=== PATIENT | female | born 1965 | race African-American/Black ===

== ENCOUNTER 2019-05-23 14:08 | Emergency (ER) | payer MEDICARE, MEDICAID, SELFPAY ==
[2019-05-23 14:24] VITALS: BP 142/58; PULSE 78; RESP 16; TEMP 36.9; O2SAT 98
--- NOTE | 2019-05-23 14:34 | ED_ITS ---
I attest that this documentation has been prepared under the direction and in the presence of Ruben Jasmine MD. Blane Smith Scribe 05/23/19;14:34 HPI - Skin/Abscess/Foreign Bdy General Chief complaint: Skin/Abscess/Foreign Body Stated complaint: ?? scabies Time Seen by Provider: 05/23/19 14:24 Source: patient Mode of arrival: ambulatory Limitations: no limitations History of Present Illness HPI narrative: The pt is a 53 y/o female who presents to the ED c/o possible scabies onset 2 weeks ago. Pt states that her neighbor's house has scabies, and she has been over there. She also notes that she has been at a hotel too. The pt reports itching and rash, but denies any fever and chills. She notes that she has not received any relief in general from any treatments or anything she has done. Pt reports a PMHx of HTN, DM, and a PSHx of section. She notes that she smokes cigarettes. complaint: other (Possible scabies) Onset (ago): week(s) (2) Relieving factors: none Context: other (Neighbor who she has visited has scabies; also recently stayed at a hotel) Associated symptoms: itching and other (Rash) Related Data Allergies Allergy/AdvReac Type Severity Reaction Status Date / Time No Known Allergies Allergy Verified 05/23/19 14:26 Review of Systems Review of Systems: All systems reviewed & are unremarkable except as noted in HPI and below Constitutional: Constitutional: Denies chills and Denies fever(s) Integumentary/Breasts: Skin/Breast: Reports pruritus and Reports rash PMFSH Past Medical History Medical History (Updated 05/23/19 @ 15:04 by Ruben Jasmine MD) Diabetes mellitus HTN (hypertension) Surgical History Surgical History (Updated 05/23/19 @ 14:41 by Blane Smith) H/O section Social History Social History (Updated 05/23/19 @ 14:41 by Blane Smith) Smoking status: Smoker, status unknown Exam Narrative: Exam Narrative: GENERAL: Well-appearing, well-nourished, and in no acute distress. HEAD: Normocephalic, atraumatic. EXTREMITIES: Normal range of motion. No edema. SKIN: Warm, dry, excoriations to hands and wrists, no burrowing, scabbed pick gaffney. NEURO: Alert and oriented x3. PSYCH: Normal mood and affect. Course Course Emergency Course: Will d/c with permethrin. Vital Signs Vital signs: Vital Signs Temperature 98.4 F 05/23/19 14:24 Pulse Rate 78 05/23/19 14:24 Respiratory Rate 16 05/23/19 14:24 Blood Pressure 142/58 H 05/23/19 14:24 Pulse Oximetry 98 05/23/19 14:24 Temperature 98.4 F 05/23/19 14:24 Pulse Rate 78 05/23/19 14:24 Respiratory Rate 16 05/23/19 14:24 Blood Pressure 142/58 H 05/23/19 14:24 Pulse Oximetry 98 05/23/19 14:24 Discharge Plan Discharge Clinical Impression: Exposure to scabies Patient Disposition: Home, Self-Care Condition: Stable Instructions: Scabies (ED) Additional Instructions: Return to the ER if you have fever over 100.4 ?F, you cannot keep down food or water, you have chest pain or shortness of breath, you have additional concerns. Prescriptions: New permethrin 5 % cream 1 applic TOPICAL ONCE Qty: 60 RF: 0 Follow-up/Referrals: UNKNOWN,DOC
[2019-05-23 15:18] VITALS: BP 140/90; PULSE 70; RESP 16; O2SAT 98
== END 2019-05-23 15:18 | disposition home or self-care (01) ==
PROVIDERS: Emergency Provider Emergency Medicine
DX: Z20.7 Contact with and (suspected) exposure to pediculosis, acariasis and other infestations (principal); E11.9 Type 2 diabetes mellitus without complications; I10 Essential (primary) hypertension
CPT/HCPCS: 99283

== ENCOUNTER 2019-05-27 11:36 | Emergency (ER) | payer MEDICARE, MEDICAID, SELFPAY ==
[2019-05-27 11:40] VITALS: BP 136/84; PULSE 84; RESP 18; TEMP 36.6; O2SAT 98
--- NOTE | 2019-05-27 13:20 | ED.GENADULT ---
HPI - General Adult General Chief complaint: Skin/Abscess/Foreign Body Stated complaint: itching Time Seen by Provider: 05/27/19 12:35 Source: patient Mode of arrival: ambulatory Limitations: no limitations History of Present Illness HPI narrative: Patient is a 53-year-old female who presents to emergency department for evaluation of rash to the hands that began after visiting her friend who reportedly had scabies patient has tried the cream with no improvement patient notes itching of the hands and wrists patient denies other complaints and presents in no distress Related Data Allergies Allergy/AdvReac Type Severity Reaction Status Date / Time No Known Allergies Allergy Verified 05/27/19 12:28 Review of Systems Review of Systems: All systems reviewed & are unremarkable except as noted in HPI and below PMFSH Past Medical History Medical History Diabetes mellitus HTN (hypertension) Surgical History Surgical History H/O section Social History Social History Smoking status: Smoker, status unknown Exam Narrative: Exam Narrative: GENERAL: Well-appearing, well-nourished, and in no acute distress. HEAD: Normocephalic, atraumatic. EYES: PERRLA and EOMI. ENT: Nares clear, no rhinorrhea or epistaxis. Mucous membranes moist. EXTREMITIES: Normal range of motion. No edema. SKIN: Warm, dry, patient with fine rash to the hands and wrists no erythema no lymphangitic streaking NEURO: No focal deficits. Alert and oriented x3. Cranial nerves II through XII grossly intact PSYCH: Normal mood and affect. Course Course Emergency Course: Patient in the room in no distress Medical Decision Making MDM Narrative Medical decision making narrative: Patient in the room in no distress advised to follow with primary care for further evaluation and discussion of dermatology referral Discharge Plan Discharge Clinical Impression: Rash and nonspecific skin eruption Patient Disposition: Home, Self-Care Condition: Stable Instructions: Antibiotic Form, Scabies (ED), Acute Rash (ED) Additional Instructions: Follow up with your primary care provider within 1-2 days. Go to ER for shortness of breath, difficulty breathing, chest pain, fever/chills, weakness, nauseau/vomitting, etc. or any other concerns. Follow patient education sheets Take any prescribed medications as directed. Stay well-hydrated If you do not have a drug allergy to tylenol or motrin and can tolerate it then take tylenol or motrin as needed for discomfort/pain. Prescriptions: New hydroxyzine HCl 25 mg tablet 25 mg PO TID PRN (Reason: itching) Qty: 7 RF: 0 permethrin 5 % cream 1 applic TOPICAL ONCE Qty: 60 RF: 0 No Action permethrin 5 % cream 1 applic TOPICAL ONCE Qty: 60 RF: 0 Follow-up/Referrals: UNKNOWN,DOCTOR [Primary Care Provider] -
== END 2019-05-27 13:59 | disposition home or self-care (01) ==
PROVIDERS: Emergency Provider Emergency Medicine
DX: R21 Rash and other nonspecific skin eruption (principal); E11.9 Type 2 diabetes mellitus without complications; I10 Essential (primary) hypertension
CPT/HCPCS: 99283

== ENCOUNTER 2019-06-18 21:17 | Emergency (ER) | payer MEDICARE, MEDICAID, SELFPAY ==
[2019-06-18 21:25] VITALS: BP 177/100; PULSE 65; RESP 19; TEMP 36.6; O2SAT 97
--- NOTE | 2019-06-18 22:05 | ED.GENADULT ---
HPI - General Adult General Chief complaint: Skin/Abscess/Foreign Body Stated complaint: itching-scalp and groin Time Seen by Provider: 06/18/19 21:25 Source: patient and family Mode of arrival: ambulatory Limitations: no limitations History of Present Illness HPI narrative: Patient is a 53-year-old female who presents to emergency department for evaluation of rash that is over the body noting that she has had this for 2 months has been treated with permethrin twice with no improvement patient notes itching with some wounds from excoriations from itching patient denies any other illness or complaints was supposed to see a specialist but did not make the appointment and on arrival is in the room in no distress Related Data Home Medications Medication Instructions Recorded Confirmed alprazolam 06/18/19 atenolol 06/18/19 glipizide mg 06/18/19 losartan 06/18/19 nifedipine PO 06/18/19 quetiapine 06/18/19 simvastatin mg 06/18/19 sitagliptin [Januvia] mg 06/18/19 Allergies Allergy/AdvReac Type Severity Reaction Status Date / Time No Known Allergies Allergy Verified 06/18/19 21:30 Review of Systems Review of Systems: All systems reviewed & are unremarkable except as noted in HPI and below PMFSH Social History Social History Smoking status: Smoker, status unknown Exam Narrative: Exam Narrative: GENERAL: Well-appearing, obese, and in no acute distress. HEAD: Normocephalic, atraumatic. EYES: PERRLA and EOMI. ENT: Nares clear, no rhinorrhea or epistaxis. Mucous membranes moist. Oropharynx without tonsillar hypertrophy exudate or other lesions. CHEST: Clear to auscultation. No respiratory distress. No wheezes rales or rhonchi HEART: Regular rate and rhythm. No murmur heard. EXTREMITIES: Normal range of motion. No edema. SKIN: Warm, dry, no rash. Patient with excoriation secondary to itching no other rashes noted NEURO: No focal deficits. Alert and oriented x3. PSYCH: Normal mood and affect. Course Course Emergency Course: Patient in the room in no distress aware of case findings treatment plan and diagnosis Vital Signs Vital signs: Vital Signs Temperature 97.8 F 06/18/19 21:25 Pulse Rate 65 06/18/19 21:25 Respiratory Rate 19 06/18/19 21:25 Blood Pressure 177/100 H 06/18/19 21:25 Pulse Oximetry 97 06/18/19 21:25 Temperature 97.8 F 06/18/19 21:25 Pulse Rate 65 06/18/19 21:25 Respiratory Rate 19 06/18/19 21:25 Blood Pressure 177/100 H 06/18/19 21:25 Pulse Oximetry 97 06/18/19 21:25 Medical Decision Making MDM Narrative Medical decision making narrative: Patient in the room in no distress aware of case findings treatment plan and diagnosis agreeing to follow with primary care for further evaluation and discussion of dermatology referral Vital Signs Vital Signs: Vital Signs Temperature 97.8 F 06/18/19 21:25 Pulse Rate 65 06/18/19 21:25 Respiratory Rate 19 06/18/19 21:25 Blood Pressure 177/100 H 06/18/19 21:25 Pulse Oximetry 97 06/18/19 21:25 Temperature 97.8 F 06/18/19 21:25 Pulse Rate 65 06/18/19 21:25 Respiratory Rate 19 06/18/19 21:25 Blood Pressure 177/100 H 06/18/19 21:25 Pulse Oximetry 97 06/18/19 21:25 Discharge Plan Discharge Clinical Impression: Rash and nonspecific skin eruption Patient Disposition: Home, Self-Care Condition: Stable Instructions: Antibiotic Form, Acute Rash (ED) Additional Instructions: Follow up with your primary care doctor in 5-7 days for re-evaluation. Go to ER for worsening pain, vision changes, nausea/vomiting, fever/chills, weakness, chest pain, shortness of breath, numbness/tingling, slurred speech, difficulty walking, change in mental status etc. or any other concerns. Discussed dermatology referral with primary care Take any prescribed medications as directed. Prescriptions: New mupirocin 2 % ointme
== END 2019-06-18 22:29 | disposition home or self-care (01) ==
PROVIDERS: Emergency Provider Emergency Medicine
DX: R21 Rash and other nonspecific skin eruption (principal)
CPT/HCPCS: 99283

== ENCOUNTER 2019-06-28 05:44 | Emergency (ER) | payer MEDICARE, MEDICAID, SELFPAY ==
[2019-06-28 05:49] VITALS: BP 152/108; PULSE 81; RESP 28; TEMP 36.4; O2SAT 98
--- NOTE | 2019-06-28 05:54 | ED.GENADULT ---
HPI - General Adult General Chief complaint: Unspecified Stated complaint: PARASITES? Time Seen by Provider: 06/28/19 05:54 Source: patient Mode of arrival: ambulatory Limitations: no limitations History of Present Illness HPI narrative: Patient is a 53-year-old female with a history of previous stroke who presents for evaluation of possible parasites. Patient states that she has felt tingling, and thinks she has seen worms or movement on her fingers. She also has been having some vaginal irritation, states she has been using an ointment without much relief. Patient denies fever, chills, abdominal pain, shortness of breath, dysuria or hematuria. No urinary frequency. Patient states her glucose levels have been appropriate. Patient states she has been treated with permethrin without much help. She has not noticed any parasites or worms present in her stool. No wounds on her feet, no recent travel. Pt denies SI or HI. She denies history of psychiatric disorder. Related Data Home Medications Medication Instructions Recorded Confirmed alprazolam 06/18/19 atenolol 06/18/19 glipizide mg 06/18/19 losartan 06/18/19 nifedipine PO 06/18/19 quetiapine 06/18/19 simvastatin mg 06/18/19 sitagliptin [Januvia] mg 06/18/19 Allergies Allergy/AdvReac Type Severity Reaction Status Date / Time No Known Allergies Allergy Verified 06/18/19 21:30 Review of Systems Review of Systems: Narrative: CONSTITUTIONAL: Denies fever, chills, or sweats. ENT: Denies rhinorrhea, congestion, sore throat, or otalgia. CARDIOVASCULAR: Denies chest pain, palpitations, or edema. RESPIRATORY: Denies cough or dyspnea. GASTROINTESTINAL: Denies abdominal pain, nausea, vomiting, or diarrhea. GENITOURINARY: Denies dysuria or hematuria. SKIN: Patient reports itching on her fingertips MUSCULOSKELETAL: Denies back pain, joint pain, or myalgia. NEUROLOGIC: Denies headache, numbness, or weakness. [facility] Past Medical History Medical History (Updated 06/28/19 @ 06:07 by Susannah Beaver MD) CVA (cerebral vascular accident) Diabetes Diabetes mellitus HTN (hypertension) Surgical History Surgical History (Updated 06/28/19 @ 05:57 by Susannah Beaver MD) H/O section Previous section Social History Social History Smoking status: Smoker, status unknown Exam Narrative: Exam Narrative: GENERAL: Awake, alert, conversant, anxious appearing HEAD: Normocephalic, atraumatic. EYES: PERRLA and EOMI. ENT: Nares clear, no rhinorrhea or epistaxis. Mucous membranes moist. NECK: Supple. CHEST: No respiratory distress, breathing even and non labored HEART: Regular rate, sinus rhythm ABDOMEN:Non distended, non tender : Scant vaginal discharge, no abscess, no vesicles, no lymphadenopathy EXTREMITIES: Normal range of motion. No edema. SKIN: Warm, dry, no rash. Scattered abrasions to bilateral upper extremities. No urticaria. No excoriation. No erythema or ulceratoins. NEURO:No focal deficits. Alert and oriented x3 Course Course Emergency Course: Patient presented for what she believes is a parasite exposure, but after questioning, patient has no reported worms present in her stool. I do not see any evidence of scabies on the physical exam, she has no vaginal irritation but does have some discharge present. I do feel there is a psychiatric component to this, however patient is oriented to person, place, and time, and does have insight into her symptoms. She is not suicidal or homicidal. Shared decision-making occurred, patient would just like to be treated empirically for sexually transmitted infections. She is denying any other urinary symptoms. I do not feel she has an exam consistent with allergic reaction. We will go ahead and prescribe some symptomatic treatment for the itching that she is experiencing. Otherwise, patient is not having any signs of severe systemic illness.
[2019-06-28] MEDS: cefTRIAXone 250 MG VIAL IM (06:10)
[2019-06-28] MEDS: AZITHROMYCIN 250 MG TABLET 1000 MG PO (06:10)
[2019-06-28] MEDS: metroNIDAZOLE 250 MG TABLET 2000 MG PO (06:11)
[2019-06-28 06:16] VITALS: BP 133/88; PULSE 88; RESP 17; O2SAT 97
== END 2019-06-28 06:18 | disposition home or self-care (01) ==
PROVIDERS: Emergency Provider Emergency Medicine
DX: N89.8 Other specified noninflammatory disorders of vagina (principal); Z71.1 Person with feared health complaint in whom no diagnosis is made; Z86.73 Personal history of transient ischemic attack (TIA), and cerebral infarction without residual deficits; I10 Essential (primary) hypertension; E11.9 Type 2 diabetes mellitus without complications
CPT/HCPCS: 96372; 99283; A9270; J0696

== ENCOUNTER 2019-07-02 00:53 | Emergency (ER) | payer MEDICARE, MEDICAID, SELFPAY ==
[2019-07-02 00:58] VITALS: BP 179/106; PULSE 76; RESP 18; TEMP 36.7; O2SAT 97
--- NOTE | 2019-07-02 01:18 | ED.GENADULT ---
HPI - General Adult General Chief complaint: Skin/Abscess/Foreign Body Stated complaint: itching Time Seen by Provider: 07/02/19 01:07 History of Present Illness HPI narrative: Patient is a 53-year-old female who presents ER with anal itching. Ongoing for the last couple months. Reports that she is found nothing that improves her symptoms. She sees flakes coming from her anus and around her vagina when she wipes. When she itches with her fingers she believes she sees worms coming out of her fingers. She reports diarrhea on occasion. No foreign travel. No fever/chills/nausea/vomiting. Seen in the ER previously and treated for possible sexually transmitted infection. Denies psychiatric history. Related Data Home Medications Medication Instructions Recorded Confirmed alprazolam 06/18/19 atenolol 06/18/19 glipizide mg 06/18/19 losartan 06/18/19 nifedipine PO 06/18/19 quetiapine 06/18/19 simvastatin mg 06/18/19 sitagliptin [Januvia] mg 06/18/19 alprazolam 07/02/19 Allergies Allergy/AdvReac Type Severity Reaction Status Date / Time No Known Allergies Allergy Verified 07/02/19 01:01 Review of Systems Review of Systems: All systems reviewed & are unremarkable except as noted in HPI and below Gastrointestinal: Gastrointestinal: Reports diarrhea Comments: Anal itching PMFSH Past Medical History Medical History (Updated 07/02/19 @ 02:01 by Ruben Jasmine MD) CVA (cerebral vascular accident) Diabetes Diabetes mellitus HTN (hypertension) Surgical History Surgical History (Updated 06/28/19 @ 05:57 by Susannah Beaver MD) H/O section Previous section Social History Social History Smoking status: Smoker, status unknown Gender identity (if verbalized by the patient): Female Exam Narrative: Exam Narrative: GENERAL: Well-appearing, obese, and in no acute distress. HEAD: Normocephalic, atraumatic. ENT: Mucous membranes moist. Rectal: External hemorrhoids that are nonthrombosed or bleeding, dry skin in gluteal fold. A couple small areas of skin breakdown from itchin. No abscess/fissures/fistulas. No worms seen. EXTREMITIES: Normal range of motion. No edema. NEURO: Alert and oriented x3. Course Course Emergency Course: Will send stool studies. Educated on ways to decrease itching. Recommend f/u with PCP. Vital Signs Vital signs: Vital Signs Temperature 98.0 F 07/02/19 00:58 Pulse Rate 76 07/02/19 00:58 Respiratory Rate 18 07/02/19 00:58 Blood Pressure 179/106 H 07/02/19 00:58 Pulse Oximetry 97 07/02/19 00:58 Temperature 98.0 F 07/02/19 00:58 Pulse Rate 76 07/02/19 00:58 Respiratory Rate 18 07/02/19 00:58 Blood Pressure 179/106 H 07/02/19 00:58 Pulse Oximetry 97 07/02/19 00:58 Medical Decision Making Vital Signs Vital Signs: Vital Signs Temperature 98.0 F 07/02/19 00:58 Pulse Rate 76 07/02/19 00:58 Respiratory Rate 18 07/02/19 00:58 Blood Pressure 179/106 H 07/02/19 00:58 Pulse Oximetry 97 07/02/19 00:58 Temperature 98.0 F 07/02/19 00:58 Pulse Rate 76 07/02/19 00:58 Respiratory Rate 18 07/02/19 00:58 Blood Pressure 179/106 H 07/02/19 00:58 Pulse Oximetry 97 07/02/19 00:58 Discharge Plan Discharge Clinical Impression: Pruritus ani Patient Disposition: Home, Self-Care Condition: Stable Instructions: Anal Itching (ED) Additional Instructions: Return the ER if you have worsening pain, you cannot keep down food or water, you have chest pain or shortness of breath, you have additional concerns. Try not to use any perfumes or soaps on your illness. Try to wash it just with water. May use witch ara to try to decrease the size of your external hemorrhoids. And [id number] pinworm medication would help with any sort of parasitic infection which I think is unlikely. Stool studies have been sent and you should fo
--- NOTE | 2019-07-02 02:16 | PC.NURSE ---
Pt stool specimen walked down to lab by ROGER
[2019-07-02 02:54] VITALS: BP 148/78; PULSE 87; RESP 13; O2SAT 97
== END 2019-07-02 02:52 | disposition home or self-care (01) ==
PROVIDERS: Emergency Provider Emergency Medicine
DX: L29.0 Pruritus ani (principal); Z86.73 Personal history of transient ischemic attack (TIA), and cerebral infarction without residual deficits; E11.9 Type 2 diabetes mellitus without complications; I10 Essential (primary) hypertension; Z79.4 Long term (current) use of insulin
CPT/HCPCS: 87015; 87177; 87209; 87269; 87272; 99283

== ENCOUNTER 2019-07-03 06:28 | Emergency (ER) | payer MEDICARE, MEDICAID, SELFPAY ==
--- NOTE | ~2019-07-03 | CT_ITS ---
EXAMINATION: CT abdomen pelvis w con DATE: 07/03/2019 07:54 INDICATION: Upper abdominal pain. Nausea and vomiting. TECHNIQUE: Computed tomography (CT) of the abdomen and pelvis was performed with 100 mL Omnipaque 350 intravenous contrast. Automated exposure control and iterative reconstruction technique were employe d. The dose-length product was 1381.93 mGy-cm. COMPARISON: None. FINDINGS: The visualized portions of the lung bases demonstrate mild atelectasis. No pleural effusion . Cardiomegaly is noted. No pericardial effusion. The liver, gallbladder, spleen, pancreas, adrenal g lands, and left kidney are normal. There are cysts in right kidney measuring up to 9 mm. There are no dilated loops of bowel. The appendix is normal. There are no pathologically enlarged lymph nodes. Th ere is no free intraperitoneal fluid. There is a right inguinal hernia containing fat. There is a lef t infraumbilical ventral hernia containing fat. There is mild thoracolumbar spondylosis. IMPRESSION: 1. Left infraumbilical ventral hernia and right inguinal hernia containing fat. Reviewed, dictated and finalized at location A.
[2019-07-03 06:44] VITALS: BP 143/90; PULSE 79; RESP 19; TEMP 36.2; O2SAT 100
--- NOTE | 2019-07-03 06:46 | ED.NAVMDI ---
HPI - Nausea/Vomiting/Diarrhea General Chief complaint: Nausea/Vomiting/Diarrhea Stated complaint: n/v Time Seen by Provider: 07/03/19 06:31 Source: patient and family Mode of arrival: ambulatory Limitations: no limitations History of Present Illness HPI Narrative: Patient is a 53-year-old female who presents for evaluation of abdominal pain, nausea and vomiting. Patient reports she has been vomiting over the past 12 hours, unable to tolerate any oral intake. Patient also reports abdominal pain throughout her abdomen, denies lower abdominal pain or back pain. Patient continues to endorse the feeling that worms are inside of her stomach and in her vagina. With chart review, patient has been seen 6 times over the past 3 months in our ER. She was seen June 27 for similar report, negative pelvic exam, treated for STI. Patient was then seen on July 01 for again similar report, diagnosed with pruritus ani, treated with antiparasitic medication and discharged. Patient states that she has been referred to a packager and strapper but that they are not accepting new patients due to the current pandemic status. Patient denies fever, chills, rhinorrhea, cough or shortness of breath. Patient denies any current vaginal bleeding, denies new vaginal discharge. Reports that symptoms continue despite multiple treatments offered from providers at this facility. Related Data Home Medications Medication Instructions Recorded Confirmed alprazolam 06/18/19 atenolol 06/18/19 glipizide mg 06/18/19 losartan 06/18/19 nifedipine PO 06/18/19 quetiapine 06/18/19 simvastatin mg 06/18/19 sitagliptin [Januvia] mg 06/18/19 alprazolam 07/02/19 Allergies Allergy/AdvReac Type Severity Reaction Status Date / Time No Known Allergies Allergy Verified 07/02/19 01:01 Review of Systems Review of Systems: Narrative: CONSTITUTIONAL: Denies fever, chills, or sweats. ENT: Denies rhinorrhea, congestion, sore throat, or otalgia. CARDIOVASCULAR: Denies chest pain, palpitations, or edema. RESPIRATORY: Denies cough or dyspnea. GASTROINTESTINAL: Reports abdominal pain, nausea, vomiting and diarrhea GENITOURINARY: Denies dysuria or hematuria. SKIN: Reports feeling worms crawling on her hands MUSCULOSKELETAL: Denies back pain, joint pain, or myalgia. NEUROLOGIC: Denies headache, numbness, or weakness. PSYCHIATRIC: Denies history of mental illness diagnosis [facility] Past Medical History Medical History CVA (cerebral vascular accident) Diabetes Diabetes mellitus HTN (hypertension) Surgical History Surgical History H/O section Previous section Social History Social History (Updated 07/03/19 @ 06:57 by Susannah Beaver MD) Smoking status: Current every day smoker Tobacco type: cigarettes Gender identity (if verbalized by the patient): Female Exam Narrative: Exam Narrative: GENERAL: Awake, alert, conversant HEAD: Normocephalic, atraumatic. EYES: PERRLA and EOMI. ENT: Nares clear, no rhinorrhea or epistaxis. Mucous membranes moist. NECK: Supple. CHEST: No respiratory distress, breathing even and non labored HEART: Regular rate, sinus rhythm ABDOMEN: Obese abdomen, soft, non distended, mild tenderness throughout, no guarding, nonrigid EXTREMITIES: Normal range of motion. No edema. SKIN: Warm, dry, no rash. NEURO:No focal deficits. Alert and oriented x3 Course Course Emergency Course: Patient presented for evaluation of nausea, vomiting and diarrhea. On exam, the patient is very well-appearing. No acute episodes of emesis, no current nausea in the ER or any distress. Patient's abdomen is soft without significant pain or signs of surgical abdomen on serial exams. Lab and imaging evaluations are reviewed and patient is felt to be a reasonable candidate for outpatient management. Patient has had numerous visits this week, at
[2019-07-03] MEDS: SODIUM CHLORIDE 0.9% IV 1,000 ML 999 ML IV CONT (07:15)
[2019-07-03] MEDS: MORPHINE SULFATE 4 MG/ML INJ IV PUSH (07:16)
[2019-07-03] MEDS: ONDANSETRON INJ 4 MG/2 ML VIAL IV PUSH (07:16)
[2019-07-03 07:45] LABS: Alanine Aminotransferase 15 U/L (4-35); Albumin Level 4.8 g/dL (3.5-5.1); Alkaline Phosphatase 76 U/L (38-126); Aspartate Amino Transferase 24 U/L (14-36); Bilirubin,Total 0.4 mg/dL (0.2-1.3); Blood Urea Nitrogen 17 mg/dL (7-17); Calcium 10.2 mg/dL (8.4-10.2); Carbon Dioxide 32 mmol/L (22-30); Chloride 100 mmol/L (98-107); Estimated Glomerular Filt Rate > 60; Glucose 156 mg/dL (65-105); Lipase 97 U/L (23-300); Potassium 3.4 mmol/L (3.4-5.0); Sodium 140 mmol/L (137-145)
[2019-07-03 07:47] LABS: Estimated Glomerular Filt Rate > 60
[2019-07-03 07:50] LABS: Basophils Percent Auto 0.3 % (0.2-1.2); Eosinophils Absolute Auto 0.2 K/mm3 (0-0.3); Eosinophils Percent Auto 2.2 % (0-4.4); Hematocrit 48.9 % (37.0-47.0); Hemoglobin 15.5 g/dL (12.0-15.0); Immature Granulocyte Absolute 0.01 K/mm3 (0.00-0.031); Immature Granulocyte Percent A 0.1 % (0-0.5); Lymphocytes Percent Auto 32.8 % (18.3-44.2); Mean Corpuscular HGB Conc 31.7 g/dl (32-36); Mean Corpuscular Volume 91.6 fl (80-100); Mean Platelet Volume 10.8 fl (7.4-10.4); Monocytes Absolute Auto 0.9 K/mm3 (0.1-0.6); Monocytes Percent Auto 8.5 % (2.6-8.5); Neutrophils Percent Auto 56.1 % (45.5-73.1); Platelet Count Result 262 k/mm3 (150-375); Red Blood Count 5.34 M/mm3 (4.2-5.4); Red Cell Distribution Width 12.5 % (11.5-14.5); White Blood Count 10.7 K/mm3 (4.5-10.0)
[2019-07-03 08:12] LABS: Add Urine Microscopic? YES; Appearance Urine Clear (Clear); Bilirubin Urine Negative (Negative); Blood Urine Negative (Negative); Color Urine Yellow (Yellow); Glucose Urine UA 1+ mg/dL (Negative); Ketones Urine Negative (Negative); Leukocyte Esterase Ur Negative LEU/UL (Negative); Mucus Urine Few /lpf; Nitrate Urine Negative (Negative); Protein Urine Negative (Negative); RBC Urine 0-2 /hpf (0-2); Specific Grav Ur 1.019 (1.001-1.035); Squamous Epithelial Cell Urine Few /hpf (Few); Urobilinogen Urine Negative mg/dL (<2.0); WBC Urine 0-3 /hpf
[2019-07-03 08:58] VITALS: BP 170/89; PULSE 58; RESP 18; O2SAT 96
== END 2019-07-03 09:03 | disposition home or self-care (01) ==
PROVIDERS: Emergency Provider Emergency Medicine
DX: K52.9 Noninfective gastroenteritis and colitis, unspecified (principal); R11.2 Nausea with vomiting, unspecified; Z86.73 Personal history of transient ischemic attack (TIA), and cerebral infarction without residual deficits; E11.9 Type 2 diabetes mellitus without complications; I10 Essential (primary) hypertension; F17.210 Nicotine dependence, cigarettes, uncomplicated; K43.9 Ventral hernia without obstruction or gangrene; K40.90 Unilateral inguinal hernia, without obstruction or gangrene, not specified as recurrent; T50.915A Adverse effect of multiple unspecified drugs, medicaments and biological substances, initial encounter
CPT/HCPCS: 36415; 74177; 80053; 81001; 83690; 85025; 87040; 96361; 96374; 96375; 99284; J2270; J2405; J7030; Q9967

== ENCOUNTER 2019-07-05 11:37 | Emergency (ER) | payer MEDICARE, MEDICAID, SELFPAY ==
[2019-07-05 11:44] VITALS: BP 161/91; PULSE 78; RESP 20; TEMP 36.1; O2SAT 96
--- NOTE | 2019-07-05 12:05 | ED.SKABFB ---
HPI - Skin/Abscess/Foreign Bdy General Chief complaint: Skin/Abscess/Foreign Body Stated complaint: itching Time Seen by Provider: 07/05/19 11:53 Source: patient Mode of arrival: ambulatory Limitations: no limitations History of Present Illness HPI narrative: This is a 53 year old female that presents to the ER for generalized itching x 2 months. Reports she is itchy all over and sees worms crawling all over her skin. Reports she has been seen here for this several times and has been treated for scabies without relief. Denies fever, chest pain, abdominal pain or vomiting. Related Data Home Medications Medication Instructions Recorded Confirmed alprazolam 06/18/19 atenolol 06/18/19 glipizide mg 06/18/19 losartan 06/18/19 nifedipine PO 06/18/19 quetiapine 06/18/19 simvastatin mg 06/18/19 sitagliptin [Januvia] mg 06/18/19 alprazolam 07/02/19 Allergies Allergy/AdvReac Type Severity Reaction Status Date / Time No Known Allergies Allergy Verified 07/05/19 11:47 Review of Systems Review of Systems: Narrative: CONSTITUTIONAL: Denies fever CARDIOVASCULAR: Denies chest pain GASTROINTESTINAL: Denies abdominal pain, nausea, vomiting, or diarrhea. SKIN: Reports rash and itching. All systems reviewed & are unremarkable except as noted in HPI and below PMFSH Social History Social History (Updated 07/03/19 @ 06:57 by Susannah Beaver MD) Smoking status: Current every day smoker Tobacco type: cigarettes Gender identity (if verbalized by the patient): Female Exam Narrative: Exam Narrative: GENERAL: Well-appearing, well-nourished, and in no acute distress. HEAD: Normocephalic, atraumatic. EYES: EOMI. CHEST: Clear to auscultation. No respiratory distress. No wheezes rales or rhonchi HEART: Regular rate and rhythm. No murmur heard. Normal peripheral pulses. ABDOMEN: Soft, nontender, nondistended, normal active bowel sounds. EXTREMITIES: Normal range of motion. No edema. SKIN: Warm, dry. Excoriations present to the arms and feet, otherwise no rash noted NEURO: No focal deficits. Alert and oriented x3. PSYCH: Normal mood and affect Course Vital Signs Vital signs: Vital Signs Temperature 97.0 F L 07/05/19 11:44 Pulse Rate 78 07/05/19 11:44 Respiratory Rate 20 07/05/19 11:44 Blood Pressure 161/91 H 07/05/19 11:44 Pulse Oximetry 96 07/05/19 11:44 Temperature 97.0 F L 07/05/19 11:44 Pulse Rate 78 07/05/19 11:44 Respiratory Rate 20 07/05/19 11:44 Blood Pressure 161/91 H 07/05/19 11:44 Pulse Oximetry 96 07/05/19 11:44 MDM - Skin/Abscess/Foreign Bdy MDM Narrative Medical decision making narrative: Patient presents to the emergency department for evaluation of itchy skin. She has been seen here for this 6 times in the last 2 months. She has been treated for scabies twice. Reports she continues to have itching and reports she sees worms on her skin. Patient trying to show me these worms on exam, there are no worms present on her skin. She was seen here two days ago and CBC, CMP and UA were without acute abnormalities. I did encourage her to take some antihistamines at home as needed for itching and to follow-up with her primary care doctor. She was given warnings to return to the ER Critical Care Time Critical Care Time Critical Care Time: No Discharge Plan Discharge Clinical Impression: Chronic pruritus Patient Disposition: Home, Self-Care Condition: Stable Instructions: Itchy Skin (ED) Additional Instructions: Return to the emergency department if you experience fever, redness and swelling of your wounds, abnormal drainage from your wounds, or any other symptoms that are concerning to you Take a Pepcid and Claritin daily. Benadryl as needed for severe itching Follow-up with primary care doctor Prescriptions: No Action permethrin 5 % cream 1 applic TOPICAL ONCE Qty: 60 RF: 0 hydroxyzine HCl 25 mg tablet 25 mg PO TID PRN (Reason:
--- NOTE | 2019-07-05 12:12 | PC.NURSE ---
Pt seen leaving ED w/ significant other after PA left room.
== END 2019-07-05 12:25 | disposition home or self-care (01) ==
LOC: ANHED 12:17
PROVIDERS: Emergency Provider Emergency Medicine
DX: L29.9 Pruritus, unspecified (principal); F17.210 Nicotine dependence, cigarettes, uncomplicated
CPT/HCPCS: 99281

== ENCOUNTER 2019-07-13 09:50 | Emergency (ER) | payer MEDICARE, MEDICAID, SELFPAY ==
[2019-07-13 10:08] VITALS: BP 195/104; PULSE 75; RESP 18; TEMP 36.3; O2SAT 98
[2019-07-13 10:15] VITALS: BP 195/104
--- NOTE | 2019-07-13 10:17 | ED.GENADULT ---
HPI - General Adult General Chief complaint: Skin/Abscess/Foreign Body Stated complaint: Itchy all Over Time Seen by Provider: 07/13/19 10:17 Source: patient and RN notes reviewed Mode of arrival: ambulatory Limitations: no limitations History of Present Illness HPI narrative: 53-year-old -[place] female presents with complaints of itching and bugs crawling (under her skin) all over her body. Cate has brought a small bug on a piece of tape in with her saying she obtained it from her RT buttock this morning. She has sought medical care for similar complaints 7 times since 05/23/19. Treated for scabies, dermatitis, and anxiety without relief. Has taken 3 doses of Xanax with little to no relief. Cate says she has had her house checked for bed bugs. Denies new changes in personal hygiene products or laundry detergent. No new foods. No swelling, burning, bleeding, or drainage. Denies fever, chills, headaches, weakness, fatigue, myalgia, facial swelling, or tongue swelling. Denies chest pain or dyspnea. Tolerating po intake well. Some parts of this dictation were generated by voice recognition software and may contain typographical and/or grammatical inaccuracies. Related Data Home Medications Medication Instructions Recorded Confirmed atenolol 06/18/19 glipizide mg 06/18/19 losartan 06/18/19 nifedipine PO 06/18/19 quetiapine 06/18/19 simvastatin mg 06/18/19 sitagliptin [Januvia] mg 06/18/19 alprazolam 07/02/19 Allergies Allergy/AdvReac Type Severity Reaction Status Date / Time No Known Allergies Allergy Verified 07/05/19 11:47 Review of Systems Review of Systems: Narrative: CONSTITUTIONAL: Denies fever, chills, sweats. EYES: Denies visual changes, redness, discharge. ENT: Denies rhinorrhea, congestion, sore throat, otalgia. CARDIOVASCULAR: Denies chest pain, palpitations, edema. RESPIRATORY: Denies dyspnea, wheezing, cough. GASTROINTESTINAL: Denies abdominal pain, nausea, vomiting, diarrhea. GENITOURINARY: Denies dysuria, hematuria, abnormal discharge SKIN: Complains of diffuse itching and crawling bugs under her skin. Denies drainage. MUSCULOSKELETAL: Denies acute back pain, joint pain, or myalgia. NEUROLOGIC: Denies numbness or focal weakness. PSYCHIATRIC: Denies anxiety or depression. All other systems reviewed & are unremarkable except as noted in HPI and below. [facility] Past Medical History Medical History (Updated 07/18/19 @ 16:34 by LAKHWINDER Johnson) CVA (cerebral vascular accident) Diabetes Diabetes mellitus HTN (hypertension) Menopause Surgical History Surgical History (Updated 07/18/19 @ 16:32 by LAKHWINDER Johnson) H/O section Previous section X6 Family History Family History (Updated 07/18/19 @ 16:33 by LAKHWINDER Johnson) Father Diabetes mellitus Grandparent Diabetes mellitus Social History Social History (Updated 07/18/19 @ 16:34 by LAKHWINDER Johnson) Smoking status: Current every day smoker Tobacco type: cigarettes Alcohol intake: never Substance use: current Substance use type: marijuana Living arrangements: with family Gender identity (if verbalized by the patient): Female Comments At time of signature, agree with nurse past medical, surgical, social, and family history. There is no relevant family history pertinent to the presenting complaint. Exam Narrative: Exam Narrative: GENERAL: This is a well-nourished, well-developed patient, in no apparent distress. Talking in full sentences without deficit and ambulate with steady gait without dyspnea. HEAD: normocephalic, atraumatic. EYES: PERRL. Sclera clear/white. Vision is grossly intact. THROAT: Mucous membranes moist, posterior pharynx clear. NECK: Neck supple, non-tender without lymphadenopathy, masses or thyromegaly. CARDIOVASCULAR: Regular rate and rhythm without murmurs, gallops, or rubs. RESPIRATORY: Clear to auscultation. Breath sound
== END 2019-07-13 10:53 | disposition home or self-care (01) ==
PROVIDERS: Emergency Provider Nurse Practitioner Family; PCP Physician Assistant
DX: L29.9 Pruritus, unspecified (principal); Z86.73 Personal history of transient ischemic attack (TIA), and cerebral infarction without residual deficits; E11.9 Type 2 diabetes mellitus without complications; I10 Essential (primary) hypertension; F17.210 Nicotine dependence, cigarettes, uncomplicated; Z79.84 Long term (current) use of oral hypoglycemic drugs
CPT/HCPCS: 99213; G0463

== ENCOUNTER 2019-12-14 20:36 | Emergency (ER) | payer MEDICARE, MEDICAID, SELFPAY ==
[2019-12-14 20:48] VITALS: BP 179/100; PULSE 72; RESP 20; TEMP 36.9; O2SAT 98
--- NOTE | 2019-12-15 00:35 | PC.NURSE ---
1st call, no response
--- NOTE | 2019-12-15 01:56 | PC.NURSE ---
No answer from patient when called to be roomed.
== END 2019-12-15 01:56 | disposition left against medical advice (07) ==
PROVIDERS: PCP Physician Assistant
DX: G43.909 Migraine, unspecified, not intractable, without status migrainosus (principal)
CPT/HCPCS: 99199

== ENCOUNTER 2021-07-13 20:52 | Observation (INO) | payer BC, MEDICARE, MEDICAID, SELFPAY ==
[2021-07-13] VITALS (19 sets, daily range): BP systolic 128–170; BP diastolic 85–117; PULSE 71–78; RESP 12–28; TEMP 36.4; O2SAT 91–99
--- NOTE | ~2021-07-13 | NM_ITS ---
EXAMINATION: NM neil stress w perfusion DATE: 07/14/2021 15:07 INDICATION: Chest pain TECHNIQUE: Rest images were obtained following intravenous administration of 7 mCi Tc99m tetrofosmin (Myoview). The patient was infused intravenously with Lexiscan (Regadenoson). Then, 20.6 mCi Tc99m te trofosmin (Myoview) was administered intravenously, and stress images were obtained in supine positio n. Additional prone post stress images were obtained due to diaphragmatic attenuation artifact along the inferior wall. Data was reconstructed into short axis and horizontal and vertical long axis SPECT images. Gated SPECT images were also obtained. COMPARISON: None. FINDINGS: There is no definite reversible or fixed perfusion abnormality to suggest ischemia or infar ction. There is normal left ventricular chamber size, wall motion and ejection fraction. Left ventr icular ejection fraction measures 60%. IMPRESSION: 1. Normal myocardial perfusion at rest and during stress. 2. Left ventricular ejection fraction measuring 60%. Reviewed, dictated and finalized at location A.
--- NOTE | ~2021-07-13 | CT_ITS ---
EXAMINATION: CTA chest PE protocol EXAM DATE: 07/13/2021 23:45 INDICATION: Shortness of breath, elevated D-dimer, left-sided chest pain. TECHNIQUE: Spiral CTA of the chest (pulmonary arteries) was performed with 100 cc Omnipaque 350 intr avenous contrast injection. Images were acquired during the pulmonary arterial phase. Coronal maxi mum intensity projection 3D-reconstructions were created by the technologist on dedicated workstation . Axial, coronal and sagittal reformatted images were reviewed. The dose-length product (DLP) for t his examination was 917.41 mGy-cm. The exposure was tailored according to patient size (auto mA exp osure control), and iterative reconstruction (ASIR) was used as additional dose reduction technique. There is no prior study for comparison. FINDINGS: Pulmonary arteries are well opacified and without intraluminal filling defects. No thora cic aortic dissection. The lungs are clear. There are no pleural or pericardial effusions. Trach eobronchial tree is patent. There is no mediastinal, hilar or axillary lymphadenopathy. There is no pneumothorax. Mild cardiomegaly. There is mild coronary arterial calcification, arterial sclero sis. Upper abdomen is unremarkable. There is thoracic spondylosis without osteoblastic or osteolyt ic lesions identified. Mildly enlarged thyroid without focal nodule suspected. IMPRESSION: 1. Mild cardiomegaly. 2. No acute cardiopulmonary findings. Reviewed, dictated and finalized at location A.
--- NOTE | ~2021-07-13 | CT_ITS ---
EXAMINATION: CT brain wo con INDICATION: Right arm numbness and swelling COMPARISON: 02/25/2013 TECHNIQUE: Standard unenhanced head CT. The dose-length product (DLP) was 605.33 mGy-cm. The mA was a djusted according to patient size. Iterative reconstruction technique was employed. FINDINGS: There is no intracranial hemorrhage, acute infarction, or abnormal mass lesion. There is an old infarct of the left basal ganglia, left internal capsule, and left laura radiata. The ventricle s are normal. There is no abnormal mass effect or midline shift. The basal cisterns are patent. The o rbits are normal. The paranasal sinuses, mastoids and calvarium are normal. IMPRESSION: 1. Prior infarct without acute intracranial abnormality. Reviewed, dictated and finalized at location F.
--- NOTE | 2021-07-13 21:40 | ED.SOB ---
HPI - SOB/Dyspnea General Chief Complaint: Shortness of Breath/Dyspnea Stated Complaint: SOB, DIZZY Time Seen by Provider: 07/13/21 21:00 Source: patient Mode of arrival: ambulatory Limitations: no limitations History of Present Illness HPI Narrative: Patient is a 55-year-old female complaining of shortness of breath accompanied by chest tightness and right upper extremity numbness and swelling that started tonight. Patient describes her chest pain is midsternal, nonradiating, was 8 out of 10, was given aspirin nitro and now down to 2 out of 10. Patient denies any abdominal pain, nausea, vomiting, diaphoresis, fever or chills. Related Data Home Medications Medication Instructions Recorded Confirmed atenolol 06/18/19 glipizide mg 06/18/19 losartan 06/18/19 nifedipine PO 06/18/19 quetiapine 06/18/19 simvastatin mg 06/18/19 sitagliptin [Januvia] mg 06/18/19 alprazolam 07/02/19 Allergies Allergy/AdvReac Type Severity Reaction Status Date / Time No Known Allergies Allergy Verified 07/13/21 21:05 Review of Systems Review of Systems: All systems reviewed & are unremarkable except as noted in HPI and below Constitutional: Constitutional: Denies body ache(s), Denies chills, Denies excessive sweating, Denies fatigue, Denies fever(s), Denies headache(s), Denies lethargy, Denies malaise, Denies weakness and Denies weight loss Eyes: Eyes: Denies blurry vision, Denies change in vision and Denies loss of vision ENT: Denies dizziness, Denies ear discharge, Denies headache(s), Denies lip swelling, Denies epistaxis, Denies nasal congestion, Denies neck pain, Denies throat swelling and Denies tongue swelling Cardiovascular: Cardiovascular: Denies diaphoresis, Denies rapid heart rate, Denies edema, Denies irregular heart rhythm, Denies lightheadedness and Denies palpitations Respiratory: Respiratory: Denies chest congestion, Denies cough and Denies hemoptysis Gastrointestinal: Gastrointestinal: Denies abdominal pain, Denies melena, Denies hematochezia, Denies diarrhea, Denies nausea, Denies vomiting and Denies hematemesis Musculoskeletal: Musculoskeletal: Denies abnormal gait, Denies deformity, Denies joint swelling, Denies limited range of motion, Denies neck pain and Denies numbness Neurologic: Denies Abnormal speech present, Denies abnormal gait, Denies confusion, Denies dizziness, Denies headache(s), Denies focal weakness, Denies loss of vision, Denies numbness, Denies Other visual disturbances, Denies Sensory deficit (Neuro) and Denies weakness Psychiatric: Psychiatric: Denies confusion, Denies depression, Denies auditory hallucinations, Denies homicidal ideation and Denies suicidal ideation Endocrine: Endocrine: Denies cold intolerance, Denies excessive sweating, Denies fatigue, Denies heat intolerance and Denies palpitations Hematologic/Lymphatic: Hematologic/Lymphatic: Denies easy bleeding and Denies easy bruising Allergic/Immunologic: Allergic/Immunologic: Denies lip swelling, Denies throat swelling and Denies tongue swelling PMFSH Past Medical History Medical History CVA (cerebral vascular accident) Diabetes Diabetes mellitus HTN (hypertension) Menopause Surgical History Surgical History H/O section Previous section X6 Family History Family History Father Diabetes mellitus Grandparent Diabetes mellitus Social History Social History Smoking status: Current every day smoker Tobacco type: cigarettes Alcohol intake: never Substance use: current Substance use type: marijuana Gender identity (if verbalized by the patient): Female Exam Const: General: cooperative, comfortable, no acute distress, well developed, alert and awake; No confusion Nutrit
[2021-07-13 21:41] LABS: Basophils Percent Auto 0.4 % (0.2-1.2); Eosinophils Absolute Auto 0.1 K/mm3 (0-0.3); Eosinophils Percent Auto 1.5 % (0-4.4); Hematocrit 42.4 % (37.0-47.0); Hemoglobin 14.3 g/dL (12.0-15.0); Immature Granulocyte Absolute 0.01 K/mm3 (0.00-0.031); Immature Granulocyte Percent A 0.1 % (0-0.5); Lymphocytes Absolute Auto 2.69 K/mm3 (0.9-3.2); Mean Corpuscular HGB Conc 33.7 g/dl (32-36); Mean Corpuscular Hemoglobin 30.5 pg (26-34); Mean Corpuscular Volume 90.4 fl (80-100); Mean Platelet Volume 9.9 fl (7.4-10.4); Monocytes Absolute Auto 0.6 K/mm3 (0.1-0.6); Monocytes Percent Auto 8.4 % (2.6-8.5); Neutrophils Absolute Auto 3.8 K/mm3 (1.3-6.7); Neutrophils Percent Auto 52.6 % (45.5-73.1); Platelet Count Result 250 k/mm3 (150-375); Red Blood Count 4.69 M/mm3 (4.2-5.4); Red Cell Distribution Width 12.6 % (11.5-14.5); White Blood Count 7.3 K/mm3 (4.5-10.0)
[2021-07-13 21:51] LABS: INR 1.2; Partial Thromboplastin Time 33.2 SECONDS (22.3-36.8); Prothrombin Time 14.5 Seconds (11.1-14.7)
[2021-07-13 21:52] LABS: Alanine Aminotransferase 13 U/L (4-35); Albumin Level 4.3 g/dL (3.5-5.1); Alkaline Phosphatase 83 U/L (38-126); Anion Gap 7 mmol/L (8-16); Aspartate Amino Transferase 19 U/L (14-36); Bilirubin,Total 0.4 mg/dL (0.2-1.3); Blood Urea Nitrogen 20 mg/dL (7-17); Calcium 9.1 mg/dL (8.4-10.2); Carbon Dioxide 23 mmol/L (22-30); Chloride 107 mmol/L (98-107); Estimated CRCL calculation 68 ml/min; Estimated Glomerular Filt Rate > 60; Glucose 159 mg/dL (65-110); Potassium 3.4 mmol/L (3.4-5.0); Sodium 137 mmol/L (137-145)
--- NOTE | 2021-07-13 21:53 | ECG_ITS ---
Measurements Intervals [place] Rate: 72 P: 54 DC: 176 QRS: -13 QRSD: 102 T: 12 QT: 445 QTc: 488 Interpretive Statements SINUS RHYTHM WITH OCCASIONAL atrial PREMATURE COMPLEXES NONSPECIFIC T-WAVE ABNORMALITY NO PREVIOUS ECG AVAILABLE FOR COMPARISON Electronically Signed On 07-14-2021 15:05:15 CDT by Chad Ren M.D.
[2021-07-13 21:54] LABS: D Dimer 0.56 ug/mL (<0.48)
[2021-07-13 22:03] LABS: NT Pro B Type Natriuretic Pept 87 pg/mL (5-100); Troponin I < 0.012 ng/mL (0.000-0.034)
[2021-07-13] MEDS: NITROGLYCERIN OINTMENT 1 INCH DOSE TRANSDERM (22:12)
[2021-07-13 23:21] LABS: Glucose Point of Care 127 mg/dl (65-105)
--- NOTE | 2021-07-13 23:21 | PC.NURSE ---
Per word processor technician pt states she feels like her BS is low. RN checked it is 127. Pt reports chest tightness improved. Crackers provided.
[2021-07-14] VITALS (21 sets, daily range): BP systolic 120–152; BP diastolic 70–106; PULSE 58–134; RESP 15–26; TEMP 36.2–36.8; O2SAT 92–100; BMI 42.6; BMI 42.7
--- NOTE | 2021-07-14 | ECHO_ITS ---
Patient Info Name: Cate Banegas Age: 55 years : 1965 Gender: Female Ht: 65 in Wt: 257 lbs BSA: 2.37 m2 HR: 66 bpm BP: 121 / 77 mmHg Heart Rhythm: Sinus Rhythm Technical Quality: Fair Exam Date: 07/14/2021 11:35 AM Exam Location: [facility] Pulmonary Patient Status: Outpatient Admit Date: 07/14/2021 Staff Ordering Physician: Fabian Zamora MD Fisher Dip Net: Monse Patel RDCS Attending Provider: Christy Ramos DO Exam Type: CA echo doppler color flow Study Info Indications - chest pain Complete two-dimensional, color flow and Doppler transthoracic echocardiogram is performed with contrast to opacify the left ventricle and to improve the deliniation of the left ventricle endocardial borders. Contrast/Agitated Saline Contrast/Ag. Saline: Definity Amount: 2.00 ml Administered By: Monse Patel RDCS Existing IV Access: Yes Summary 1. Definity contrast injected to improve visualization. 2. Left ventricular chamber dimension is normal. 3. Left ventricular systolic function is normal, estimated at 60-65%. 4. Left atrial chamber dimension is mildly enlarged. 5. No significant valvular abnormality. Left Ventricle Left ventricular chamber dimension is normal. Left ventricular systolic function is normal, estimated at 60-65%. The left ventricular diastolic function is normal. Definity contrast injected to improve visualization. Right Ventricle Right ventricular chamber dimension is normal. Left Atria Left atrial chamber dimension is mildly enlarged. Right Atria Right atrial chamber dimension is normal. Aortic Valve The aortic valve is normal. Pulmonic Valve The pulmonic valve is not well visualized. There is mild pulmonic regurgitation. Mitral Valve The mitral valve has normal leaflets. Tricuspid Valve The tricuspid valve leaflets are normal. Pericardium/Pleural The pericardium appears normal. Aorta The aortic root size at the sinus of Valsalva is normal. Left Ventricular Outflow Tract Name Value Normal LVOT 2D LVOT Diameter 2.0 cm LVOT Doppler LVOT Peak Gradient 4 mmHg LVOT Mean Gradient 2 mmHg LVOT VTI 21 cm LVOT VTI/AV VTI Ratio 0.8 LVOT Stroke Volume 69 ml LVOT CO 3.9 l/min LVOT CI 1.6 l/min/m2 Pulmonic Valve Name Value Normal RVOT Doppler RVOT Peak Gradient 1 mmHg PV Doppler PV Peak Gradient 3 mmHg Mitral Valve Name
--- NOTE | 2021-07-14 | EST_ITS ---
Patient Info Name: Cate Banegas Age: 55 years : 1965 Gender: Female Ht: 65 in Wt: 254 lbs BSA: 2.36 m2 HR: 65 bpm BP: 141 / 107 mmHg Heart Rhythm: Sinus Rhythm Exam Date: 07/14/2021 2:09 PM Exam Location: [facility] Stress Patient Status: Inpatient Admit Date: 07/14/2021 Staff Ordering Physician: Chad Ren MD Attending Provider: Christy Ramos DO Exercise Technologist: Lynn Winslow CT Exercise Physician: Erin Flynn NP Exam Type: CA stress neil w NM Study Info Indications R07.9 - Chest pain, unspecified A regadenoson stress test was performed. Summary 1. Normal sinus rhythm with nonspecific T-wave flattening. 2. No ST segment or T-wave abnormalities induced by Lexiscan. 3. Clinically and electrocardiographically negative Lexiscan stress test. 4. Myocardial perfusion imaging study to be reported by Radiology. Protocol: Lexiscan Stress ECG Details Stage: REST Duration (min): 2 min : 11 sec HR (bpm): 64 SBP (mmHg): 141 DBP (mmHg): 107 Stage: REST Duration (min): 7 min : 21 sec HR (bpm): 65 SBP (mmHg): 141 DBP (mmHg): 107 Stage: STAGE 1 Duration (min): 0 min : 59 sec HR (bpm): 66 SBP (mmHg): 141 DBP (mmHg): 107 Stage: RECOVERY Duration (min): 1 min : 0 sec HR (bpm): 82 SBP (mmHg): 141 DBP (mmHg): 107 Stage: RECOVERY Duration (min): 2 min : 0 sec HR (bpm): 79 SBP (mmHg): 141 DBP (mmHg): 107 Stage: RECOVERY Duration (min): 3 min : 0 sec HR (bpm): 77 SBP (mmHg): 138 DBP (mmHg): 88 Stage: RECOVERY Duration (min): 3 min : 5 sec HR (bpm): 73 SBP (mmHg): 138 DBP (mmHg): 88 Rest HR: 65 bpm Peak HR: 82 bpm Rest Sys BP: 141 mmHg Peak Sys BP: 138 mmHg Max Pred HR: 166 bpm % Max Pred HR: 49 % Target HR: 141 bpm Max RPP: 11,316 bpm*mmHg Termination Reason: Completed protocol Cardiac Symptoms: Shortness of breath Total Time: 1 min : 0 sec Rest Keith BP: 107 mmHg Peak Keith BP: 88 mmHg Total Dose: 0.4 mg Resting ECG Normal sinus rhythm with nonspecific T-wave flattening. Stress ECG No ST segment or T-wave abnormalities induced by Lexiscan. Report Signatures
[2021-07-14 01:09] LABS: Troponin I < 0.012 ng/mL (0.000-0.034)
--- NOTE | 2021-07-14 06:34 | ADMGEN ---
This patient, Cate Banegas, was admitted to IMU Room 209-01 07/14/21 @ 0230. Patient/family oriented to hospital policies and general routines including ID bracelet, bed and alarms, visiting hours, pain management, procedures, bathroom and other care routines, personal items, smoking policy, room service/diet, and visiting hours. Information on how to activate the Rapid Response Team has been discussed. Patient/Family are encouraged to report perceived risks to care and to ask questions if they do not understand what they are told or what they should do.
[2021-07-14 08:53] LABS: Glucose Point of Care 156 mg/dl (65-105)
[2021-07-14 11:05] LABS: Troponin I < 0.012 ng/mL (0.000-0.034)
[2021-07-14] MEDS: SIMVASTATIN 20 MG TABLET 40 MG PO (12:19)
[2021-07-14] MEDS: ASPIRIN 81 MG CHEWABLE TABLET PO (12:21)
[2021-07-14] MEDS: SERTRALINE HCL 50 MG TABLET PO (12:21)
[2021-07-14] MEDS: PERFLUTREN LIPID MICROSPHERES 1.5 ML VIAL DILUTED TO 10 ML TOTAL VOLUME IV PUSH (12:26)
--- NOTE | 2021-07-14 12:26 | IVDEFINITY ---
Prior to administration of IV Definity the patient was educated on the risks and benefits of the imaging enhancing agent including potential adverse side effects. The patient verbalized understanding. Allergies were verified. No exclusion criteria were identified and at least one of the following inclusion criteria were met: 1) physician request, 2) patient technically difficult to image (per the [place] [employer]chocardi[employer] guidelines of two or more segments not discernable within the apical view), or 3) questionable left ventricular function. ?
--- NOTE | 2021-07-14 13:15 | PM.CNCAR ---
Assessment and Plan Additional Plan This is a 55-year-old black female who has underlying hypertension non insulin-dependent diabetes and cigarette smoking as well as treated dyslipidemia. She had a chest pain episode yesterday that was for the most part atypical of ischemia. In the face of this her troponin levels have remained normal. This could certainly be related to crack cocaine use which she admits to. Obviously she also has risk factors for coronary disease. I am going to arrange for a Lexiscan nuclear stress test to be done if possible this afternoon since she is still NPO and plan to review those scans carefully to see if she has significant ischemic burden. Given her obesity we would not be surprised if this not a completely normal exam and I do not wish to proceed with angiography if we see findings that are most consistent with soft tissue attenuation. Leave further recommendations after her nuclear stress test takes place Chad Ren MD MERGED WITH [facility] History of Present Illness History of Present Illness Consult date/time: 07/14/21 13:15 Consult reason: chest pain Reason For Visit: Chest pain Narrative: This is a 55-year-old woman I am seeing at the request of the hospitalist this afternoon because of some chest pain experienced yesterday for which she was admitted to the hospital for evaluation and treatment. She is not known to have any cardiac problems prior to this. She indicates that yesterday evening while she was at home conducting normal activities of household [place] sort she began to experience chest pain she describes this as a squeezing sensation in the upper left anterior chest region with no radiation to any other location. She had also had recurrence of this and then had some radiation into both arms. The discomfort did not cause her to a struggle to breathe become diaphoretic or nauseated. Because of the symptoms she came to the emergency room. Her electrocardiogram demonstrates sinus rhythm with a PAC and some nonspecific T-wave abnormalities. Troponin levels of course have been done x3 sets and they are all normal. She does not exercise or perform a lot of physical activity and is morbidly obese. She does not however not notice pattern of exertional chest discomfort at any point. Denies any symptoms of palpitations orthopnea PND or syncope. She does carry the diagnosis of hypertension non insulin-dependent diabetes she continues to smoke cigarettes and she also uses crack cocaine. Review of Systems Constitutional: Constitutional: Reports no additional constitutional complaints Eyes: Eyes: Reports no additional eye complaints ENT: Reports system reviewed and no additional complaints, except as documented Cardiovascular: Cardiovascular: Reports as per HPI Respiratory: Respiratory: Reports as per HPI Gastrointestinal: Gastrointestinal: Reports no additional gastrointestinal complaints Musculoskeletal: Musculoskeletal: Reports no additional musculoskeletal complaints Integumentary/Breasts: Skin/Breast: Reports system reviewed and no additional complaints, except as docu Neurologic: Reports as per HPI Endocrine: Endocrine: Reports no additional endocrine complaints Hematologic/Lymphatic: Hematologic/Lymphatic: Reports no additional hematologic/lymphatic complaints Allergic/Immunologic: Allergic/Immunologic: Reports no additional allergic/immunologic complaints PMFSH Past Medical History Medical History CVA (cerebral vascular accident) Diabetes Diabetes mellitus HTN (hypertension) Menopause Surgical History Surgical History H/O section Previous section X6 Family History Family History Father Diabetes mellitus Grandparent Diabetes mellitus Social History Social History (Reviewed 07/13/21 @ 21:42
--- NOTE | 2021-07-14 15:50 | PM.SD2 ---
Same Day Admit/Disch: HPI History of Present Illness Chief complaint: Chest pain Narrative: Cate Banegas is a 55 year old female with hx of DM, HTN, cocaine and tobacco abuse here for chest pain and right arm tingling. Patient saw her physician a few weeks ago and there was concern for heart failure and he recommended patient follow-up with Cardiology. She has not done this yet. She states her complaints were dyspnea on exertion when she is walking from the parking lot or walking up a flight of stairs and this has been going on for the past year. No pedal edema. She does have a history of stroke from 2013 related to hypertension and cocaine use. She does have mild right-sided weakness from the stroke. Patient has not having any chest pain up until the day of admission. She works from home. On the day of admission, she was walking back to her desk when she developed a squeezing and pressure type chest discomfort in the substernal region. At the same time she had right arm tingling. There is no radiation to the pain. She has no GERD symptoms. No nausea or vomiting. No abdominal pain. She was short of breath but no wheezing. The chest pain was not palpable, pleuritic or positional. Her daughter called the ambulance. Aspirin was given without benefit. Patient's pain improved in the ED when she was given nitropaste. Blood pressure in the ED was 170/117. Patient was admitted for further care. [facility] Past Medical History Medical History (Updated 07/14/21 @ 16:02 by Fabian Zamora MD) CVA (cerebral vascular accident) Diabetes mellitus HTN (hypertension) Menopause LALITA (obstructive sleep apnea) Surgical History Surgical History (Updated 07/14/21 @ 15:54 by Fabian Zamora MD) Previous section X6 Family History Family History Father Diabetes mellitus Grandparent Diabetes mellitus Social History Social History (Updated 07/14/21 @ 15:55 by Fabian Zamora MD) Social History: Patient lives at home with her daughter and her daughter's father. She denies alcohol use. She smokes a pack a day x 40 years. She admits to using crack cocaine 3 to 4 times a week. Denies any history of IV drug use. She is a full code. She nominates her mother to be the individual would make medical decisions for her if she is unable. Smoking packs per day: 1 Smoking cigarettes per day: 20.0 Years smoked: 40 Smoking pack-years: 40.00 Smoking status: Heavy tobacco smoker Tobacco type: cigarettes Second hand tobacco smoke exposure: Yes Alcohol intake: never Substance use: never Substance use type: marijuana Gender identity (if verbalized by the patient): Female Spiritual care concerns: No Same Day Admit/Disch: Med Pre-admit Medications Home Medications Medication Instructions Recorded Confirmed Type atenolol 100 mg PO DAILY 06/18/19 07/14/21 History glipizide 10 mg PO BID 06/18/19 07/14/21 History losartan 100 mg PO DAILY 06/18/19 07/14/21 History nifedipine 60 mg PO DAILY 06/18/19 07/14/21 History simvastatin 40 mg PO DAILY 06/18/19 07/14/21 History sitagliptin [Januvia] 100 mg PO DAILY 06/18/19 07/14/21 History Victoza 3-Grupo 18 mg SUBCUT DAILY 07/14/21 07/14/21 History sertraline 50 mg PO DAILY 07/14/21 07/14/21 History Exam Narrative: AF 98.2 140/73 58 18 96% ra Gen - well-nourished, well-developed female in no acute respiratory distress who is nontoxic-appearing lying semi recumbent in bed HEENT - normocephalic. Atraumatic. Pupils equal round and reactive. Extraocular motions intact. Sclera clear and anicteric. Nares patent. Oropharynx was not visualized. No oral lesions. Moist mucous membranes. Tongue was midline. Palate uriah symmetrically. No facial asymmetry. Neck - neck was supple. No dominant adenopathy, thyromegaly or masses. 2+ carotid upstrokes without bruits. Chest - lungs are clear to auscultation
[2021-07-14 16:14] LABS: Glucose Point of Care 252 mg/dl (65-105)
== END 2021-07-14 18:20 | disposition home or self-care (01) ==
LOC: ANHED 07-14 00:41 → ANHIMU 07-14 04:50
PROVIDERS: Admitting Provider Internal Medicine; Emergency Provider Emergency Medicine; PCP Physician Assistant; Visit Provider Internal Medicine
DX: R07.9 Chest pain, unspecified (principal); R06.02 Shortness of breath; R20.0 Anesthesia of skin; I10 Essential (primary) hypertension; E78.5 Hyperlipidemia, unspecified; E11.9 Type 2 diabetes mellitus without complications; I69.351 Hemiplegia and hemiparesis following cerebral infarction affecting right dominant side; G47.33 Obstructive sleep apnea (adult) (pediatric); F17.210 Nicotine dependence, cigarettes, uncomplicated; F12.90 Cannabis use, unspecified, uncomplicated; F14.90 Cocaine use, unspecified, uncomplicated; Z79.84 Long term (current) use of oral hypoglycemic drugs; E66.01 Morbid (severe) obesity due to excess calories; Z68.41 Body mass index [BMI] 40.0-44.9, adult
CPT/HCPCS: 36415; 70450; 71275; 78452; 80053; 82948; 83880; 84484; 85025; 85380; 85610; 85730; 93005; 93017; 93306; 96374; 99285; A9270; A9502; G0378; J2785; Q9957; Q9967

== ENCOUNTER 2021-08-03 07:15 | Emergency (ER) | payer BC, MEDICARE, MEDICAID, SELFPAY ==
--- NOTE | ~2021-08-03 | XR_ITS ---
EXAMINATION: XR chest 1V portable INDICATION: Shortness of breath, COVID 19 exposure TECHNIQUE: Portable AP chest at 0729 hours COMPARISON: 11/06/2011 FINDINGS: The lungs are free of acute opacities. There is no pleural effusion or pneumothorax. The ca rdiomediastinal silhouette is normal. Calcified pulmonary nodules and calcified bilateral hilar lymph nodes are consistent with old granulomatous disease. IMPRESSION: 1. No acute cardiopulmonary abnormality. Reviewed, dictated and finalized at location A.
[2021-08-03 07:14] VITALS: BP 122/85; PULSE 84; RESP 17; TEMP 37.2; O2SAT 96
--- NOTE | 2021-08-03 07:18 | ECG_ITS ---
Measurements Intervals [place] Rate: 85 P: 59 [place]: 173 QRS: -10 QRSD: 102 T: 49 QT: 385 QTc: 459 Interpretive Statements SINUS RHYTHM VENTRICULAR PREMATURE COMPLEXES NONSPECIFIC ST & T-WAVE ABNORMALITY- INF/LAT LEADS BORDERLINE ECG Electronically Signed On 08-03-2021 7:50:48 CDT by Marlo Mahmood D.O.
[2021-08-03 07:57] VITALS: BP 135/90; PULSE 81; RESP 24; O2SAT 95
--- NOTE | 2021-08-03 08:30 | ED.SOB ---
HPI - SOB/Dyspnea General Chief Complaint: Upper Respiratory Infection Stated Complaint: shortness of breath Time Seen by Provider: 08/03/21 08:30 Source: patient Limitations: no limitations History of Present Illness HPI Narrative: 55 years old -L[place] female complaining of possible panic attacks last night with hot waves off and on since last night. She denies any chest pain. Also complaining of itching rash on the right lower extremity and chest bilaterally for a while. She denies any fever, chills, nausea, vomiting, chest pain, cocaine use recent. Patient lives with her daughter. Currently patient feeling okay, denying any symptoms. Patient reports exposure to her granddaughter who tested positive for COVID 2 weeks ago. Patient had 1 vaccine for COVID months ago Related Data Home Medications Medication Instructions Recorded Confirmed Januvia 100 mg PO DAILY 06/18/19 07/14/21 atenolol 100 mg PO DAILY 06/18/19 07/14/21 glipizide 10 mg PO BID 06/18/19 07/14/21 losartan 100 mg PO DAILY 06/18/19 07/14/21 nifedipine 60 mg PO DAILY 06/18/19 07/14/21 simvastatin 40 mg PO DAILY 06/18/19 07/14/21 Victoza 3-Grupo 18 mg SUBCUT DAILY 07/14/21 07/14/21 sertraline 50 mg PO DAILY 07/14/21 07/14/21 Allergies Allergy/AdvReac Type Severity Reaction Status Date / Time No Known Allergies Allergy Verified 08/03/21 07:19 Review of Systems Review of Systems: All systems reviewed & are unremarkable except as noted in HPI and below PMFSH Past Medical History Medical History CVA (cerebral vascular accident) Diabetes mellitus HTN (hypertension) Menopause LALITA (obstructive sleep apnea) Surgical History Surgical History Previous section X6 Family History Family History Father Diabetes mellitus Grandparent Diabetes mellitus Social History Social History Social History: Patient lives at home with her daughter and her daughter's father. She denies alcohol use. She smokes a pack a day x 40 years. She admits to using crack cocaine 3 to 4 times a week. Denies any history of IV drug use. She is a full code. She nominates her mother to be the individual would make medical decisions for her if she is unable. Smoking packs per day: 1 Smoking cigarettes per day: 20.0 Years smoked: 40 Smoking pack-years: 40.00 Smoking status: Heavy tobacco smoker Tobacco type: cigarettes Second hand tobacco smoke exposure: Yes Alcohol intake: never Substance use: never Substance use type: marijuana Gender identity (if verbalized by the patient): Female Spiritual care concerns: No Exam Narrative: General appearance: Well-developed, well-nourished, looks in pain or distress Skin: Normal color, thick dry skin right lower leg externally with extensive scratch gaffney and chest. Head: Normocephalic, nontraumatic Eyes: Clear conjunctiva ENT: Oropharynx normal, ears normal, nose normal Neck: Supple, nontender Chest and respiratory: Airway patent, no respiratory distress, no accessory muscle use Heart: Regular rate/rhythm Abdomen: Soft, nontender, no organomegaly, quiet bowel sounds Vascular: Normal peripheral pulses, normal capillary refill. Musculoskeletal: Normal range of motion, nontender back Neurologic: Alert and oriented ?3, [employer] is normal as tested, no gross motor deficit Course Course Emergency Course: Improved Vital Signs Vital signs: Vital Signs Temperature 37.2 C 08/03/21 07:14 Pulse Rate 84 08/03/21 0
[2021-08-03 09:07] VITALS: BP 127/84; PULSE 79; RESP 22; O2SAT 100
[2021-08-03 09:26] LABS: Anion Gap 6 mmol/L (8-16); Blood Urea Nitrogen 16 mg/dL (7-17); Calcium 9.3 mg/dL (8.4-10.2); Carbon Dioxide 29 mmol/L (22-30); Chloride 103 mmol/L (98-107); Estimated CRCL calculation 82 ml/min; Estimated Glomerular Filt Rate > 60; Glucose 115 mg/dL (65-110); Potassium 3.4 mmol/L (3.4-5.0); Prothrombin Time 13.2 Seconds (11.1-14.7); Sodium 138 mmol/L (137-145)
[2021-08-03 09:27] LABS: Partial Thromboplastin Time 33.5 SECONDS (22.3-36.8)
[2021-08-03 09:29] LABS: D Dimer 0.79 ug/mL (<0.48)
[2021-08-03 09:38] LABS: NT Pro B Type Natriuretic Pept 76 pg/mL (5-100); Troponin I < 0.012 ng/mL (0.000-0.034)
[2021-08-03] MEDS: LORazepam (*CRX) 0.5 MG TABLET 1 MG PO (09:39)
[2021-08-03 10:43] LABS: Basophils Percent Auto 0.3 % (0.2-1.2); Eosinophils Absolute Auto 0.3 K/mm3 (0-0.3); Eosinophils Percent Auto 2.8 % (0-4.4); Hemoglobin 14.4 g/dL (12.0-15.0); Immature Granulocyte Absolute 0.02 K/mm3 (0.00-0.031); Immature Granulocyte Percent A 0.2 % (0-0.5); Lymphocytes Absolute Auto 2.76 K/mm3 (0.9-3.2); Lymphocytes Percent Auto 27.9 % (18.3-44.2); Mean Corpuscular Volume 93.8 fl (80-100); Mean Platelet Volume 10.7 fl (7.4-10.4); Monocytes Absolute Auto 0.7 K/mm3 (0.1-0.6); Monocytes Percent Auto 7.3 % (2.6-8.5); Neutrophils Absolute Auto 6.1 K/mm3 (1.3-6.7); Neutrophils Percent Auto 61.5 % (45.5-73.1); Platelet Count Result 291 k/mm3 (150-375)
[2021-08-03 10:45] LABS: White Blood Count 9.9 K/mm3 (4.5-10.0)
[2021-08-03 11:49] VITALS: BP 138/76; PULSE 85; RESP 18; O2SAT 98
== END 2021-08-03 11:50 | disposition home or self-care (01) ==
PROVIDERS: Emergency Provider Emergency Medicine; PCP Physician Assistant
DX: L25.9 Unspecified contact dermatitis, unspecified cause (principal); I10 Essential (primary) hypertension; E11.9 Type 2 diabetes mellitus without complications; F17.210 Nicotine dependence, cigarettes, uncomplicated; Z86.73 Personal history of transient ischemic attack (TIA), and cerebral infarction without residual deficits
CPT/HCPCS: 36415; 71045; 80048; 83880; 84484; 85025; 85380; 85610; 85730; 93005; 99284; A9270